=== PATIENT | female | born 1975 | race Caucasian/White ===

== ENCOUNTER 2018-10-02 17:01 | Emergency (ER) | payer SELFPAY ==
--- NOTE | 2018-10-02 18:44 | EDM.PDOC ---
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 Patient states that she was seen by her doctor in [place] and had a LEEP procedure today she states approximately 2 hours after procedure she noticed moderate amount of bleeding from her vagina. Force that she has passed 2 clots and has worn 3 pads in the last 4 hours. She states that she does not have any pain because she took a hydrocodone before she came into the emergency room. She denies any weakness or fatigue. Onset: Today, Sudden Onset Date: 10/02/18 Onset Time: 16:00 Duration: Getting Worse Location: Reports: Other (Vagina) Severity: Mild Improves with: Reports: None Worsens with: Reports: None Associated Symptoms: Reports: Other (vaginal bleeding) Treatments MANAGER TAX: Reports: Other (see below) (hydrocodiene) - Related Data Allergies Allergy/AdvReac Type Severity Reaction Status Date / Time No Known Allergies Allergy Verified 10/02/18 17:07 Home Meds: Home Meds . [No Known Home Meds] 10/02/18 [History] ED ROS GENERAL - Review of Systems Review Of Systems: See Below Constitutional: Reports: Fatigue. Denies: Fever, Chills HEENT: Reports: No Symptoms Respiratory: Reports: No Symptoms Cardiovascular: Reports: No Symptoms GI/Abdominal: Denies: Abdominal Pain : Reports: Discharge, Other (vaginal bleeding with clots) Musculoskeletal: Reports: No Symptoms Skin: Reports: No Symptoms Neurological: Reports: No Symptoms Psychiatric: Reports: No Symptoms Hematologic/Lymphatic: Reports: No Symptoms Immunologic: Reports: No Symptoms ED EXAM, GI/ABD - Physical Exam Exam: See Below Exam Limited By: No Limitations General Appearance: Alert, WD/WN, No Apparent Distress GI/Abdominal Exam: Normal Bowel Sounds, Soft, Non-Tender, No Organomegaly, No Distention, No Abnormal Bruit, No Mass, Pelvis Stable (Female) Exam: Normal External Exam, Other (oozing blood noted superior aspect of the cervix at 9 and 12 with clots. ) Back Exam: Normal Inspection, Full Range of Motion Neurological: Alert, Oriented, CN II-XII Intact, Normal Cognition, Normal Gait, Normal Reflexes, No Motor/Sensory Deficits Psychiatric: Tearful Skin Exam: Warm, Dry, Intact, Normal Color, No Rash Lymphatic: No Adenopathy ED ABDOMINAL/GI PROCEDURES - Additional/Other Procedure(s) Procedure(s) (Free Text): pelvic examination revealed blood oozing from superior cervix at 9 and 1200. I cauterized the area with silver nitrate sticks. Patient tolerated procedure well. Course - Vital Signs Last Recorded V/S: Last Vital Signs Temp 37.6 C 10/02/18 17:08 Pulse 68 10/02/18 17:08 Resp 22 H 10/02/18 17:08 BP 136/84 10/02/18 17:08 Pulse Ox 95 10/02/18 17:08 - Orders/Labs/Meds Meds: Medications Discontinued Medications Generic Name Dose Route Start Last Admin Trade Name Divya PRN Reason Stop Dose Admin Epinephrine HCl 1 mg 10/02/18 19:25 10/02/18 20:56 Adrenalin IVPUSH 10/02/18 19:26 Not Given NOW ONE Epinephrine HCl Confirm 10/02/18 19:29 10/02/18 20:57 Adrenalin Administered 10/02/18 19:30 Not Given Dose 1 mg .ROUTE .STK-MED ONE Lorazepam 1 mg 10/02/18 19:04 10/02/18 19:10 Ativan PO 10/02/18 19:05 1 mg ONETIME ONE Administration Oxymetazoline HCl 1 ml 10/02/18 19:24 10/02/18 20:57 Nasal Decongestant Carlotta PADMINI 10/02/18 19:25 Not Given ONETIME ONE - Re-Assessments/Exams Free Text/Narrative Re-Assessment/Exam: 10/02/18 1930 re-evaluation reveals moderate amount of blood in vault. I did speak with her oncologist Dr. Claire García who recommended that she had Monsel medication applied. I did consult Dr. Fred Hansen. He agreed to see patient in all further evaluate and treat her. 10/02/18 20:15 Dr. Fred Hansen at the bedside evaluating patient He inserted Molsel gel and obtained hemostasis. 10/02/18 20:32 Patient is stable for discharge. I will discharge with instructions to follow- up with her assistant customer service manager as scheduled in one month. Instructed patient to return to emergency room for any new or acutely worsening symptoms. Departure - Departure Time of Disposition: 20:31 Disposition: Home, Self-Care 01 Clinical Impression: Postoperative vaginal bleeding - Discharge Information *PRESCRIPTION DRUG MONITORING PROGRAM REVIEWED*: Not Applicable *COPY OF PRESCRIPTION DRUG MONITORING REPORT IN PATIENT ZANDRA: Not Applicable Instructions: Loop Electrosurgical Excision Procedure, Care After Referrals: PCP,None [Primary Care Provider] - Forms: ED Department Discharge Additional Instructions: You were seen today for bleeding after having a LEEP procedure. Her to follow- up with Dr. Claire Castle-cleaned as scheduled. You are to be on pelvic rest for the next few days. Return to the emergency room for any new or acutely worsening symptoms. <Ethan Benavides - Last Filed: 10/02/18 21:39> Course - Radiology Interpretation Free Text/Narrative:: 43-year-old female attends the ED with bleeding per vagina. She had a LEEP procedure carried out in [place] at about noon hour today. Started bleeding per vagina approximately 1600 hrs. today. She has little to no pain or discomfort. I participated in the decision-making process for management and treatment in the ED. Procedures were carried out by nurse practitioner danae Hancock. Initial attempts to bring the bleeding under control with silver nitrate were initially thought to be successful but on return visit she was bleeding substantially from the 9:00 to 12 o'clock position on the outer cervix. Therefore discussion was carried out with substation superintendent assistant customer service manager Dr. Fred Hansen in he will attend the patient in the ED. - Re-Assessments/Exams Free Text/Narrative Re-Assessment/Exam: 10/02/18 20:36
[2018-10-02] MEDS ORDERED: LORazepam 1 MG Tab PO ONE (19:04)
[2018-10-02] MEDS ORDERED: Oxymetazoline 0.05% Nasal Spray 30 ML Bottle NAS ONE (19:24)
[2018-10-02] MEDS ORDERED: EPINEPHrine 1 MG/ML 30 ML MDV IVPUSH ONE (19:25)
[2018-10-02] MEDS ORDERED: EPINEPHrine 1 MG/ML SDV ONE (19:29)
--- NOTE | 2018-10-02 20:41 | PCM.CONS ---
H&P History of Present Illness - General Date of Service: 10/02/18 Admit Problem/Dx: Cervical bleeding after LEEP procedure done earlier today in [place]. Source of Information: Patient History Limitations: Reports: No Limitations - History of Present Illness Initial Comments - Free Text/Narative: Kristie is a 43-year-old 4 para 3013 white female who is seen in emergency room for vaginal/cervical bleeding which started approximate 4:00 today. She reports that she had a LEEP procedure done for cervical dysplasia by Dr. Antoine Montejo in [facility]. She had this done approximately mid day. She returned home and at approximately 4 to 4:38 PM began having bleeding. Bleeding with clot passage was associated with minimal cramping. No other symptoms noted. She is seen in the emergency room by mid-level provider and was noted to have bleeding.. We actively bleeding with a vagina full of blood at that time. 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 History of abnormal passer previously and now again. Treated with LEEP. She said 1 miscarriage which was treated with D&C. Past medical history: 1. Abnorma many years ago and again recently 2. Vaginal delivery 3 para 3. One spontaneous abor was treated with D&C Past surgical history: 1. LEEP p procedure for cervical dysplasia 2 D&C for miscarriage Medications: 1. Hydrocodone when necessary 2. Ativan when necessary 3. Pepcid for gastritis. Family history is not known Patient is adopted. Social history. 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 She smokes approximately 3 cigarettes per week. Does not use any significant loss of alcohol or drugs. Review of systems positive for minimal cramping and for the bleeding otherwise unremarkable. Physical exam: In general patient is well-developed, well-nourished, overweight white female in no acute distress. She is alert and oriented 3 and appears stated age Abdomen is flat, soft, nontender, moderately overweight, no masses or organomegaly noted. No inguinal lymphadenopathy is apparent. Genital exam per speculum shows normal external genitalia with the exception of small amount of blood on the perineum. As speculum exam shows cervix to be status post LEEP procedure. The base of the LEEP operative site has small clot present within it. There is no active bleeding at the time of the evaluation. No blood of significance is noted in the vagina. The area is treated with Monsel 's solution to help insure no further bleeding occurs. Patient tolerated this very well. Assessment: 1. Cervical bleeding status post LEEP procedure done by Dr. Antoine Montejo in [place], [place] mid-day 10/02/2018 2. Patient lives in [facility]. Plan: 1. Patient is to call in the morning to let us now she is doing. 2. Patient is to abstain from intercourse, heavy lifting or significant physical activity. 3. Follow up with Dr. Antoine Montejo as scheduled. - Related Data Allergies/Adverse Reactions: Allergies Allergy/AdvReac Type Severity Reaction Status Date / Time No Known Allergies Allergy Verified 10/02/18 17:07 Home Medications: Home Meds . [No Known Home Meds] 10/02/18 [History] Past Medical History - Past Health History Medical/Surgical History: Denies Medical/Surgical History Social & Family History - Tobacco Use Smoking Status *Q: Never Smoker - Caffeine Use Caffeine Use: Reports: None - Recreational Drug Use Recreational Drug Use: No H&P Review of Systems - Review of Systems: Review Of Systems: See Below Exam - Exam Exam: See Below - Vital Signs Vital Signs: Last Vital Signs Temp 37.6 C 10/02/18 17:08 Pulse 68 10/02/18 17:08 Resp 22 H 10/02/18 17:08 BP 136/84 10/02/18 17:08 Pulse Ox 95 10/02/18 17:08 Weight: 86.183 kg Consult PN Assessment/Plan Problem List Initiated/Reviewed/Updated: Yes
== END 2018-10-02 20:47 | disposition home or self-care (01) ==
LOC: JD.ED 17:01
DX: N99.820 Postprocedural hemorrhage of a genitourinary system organ or structure following a genitourinary system procedure (principal); N87.9 Dysplasia of cervix uteri, unspecified; Z98.890 Other specified postprocedural states
CPT/HCPCS: 12001; 99284; A9270